=== PATIENT | female | born 1965 | race Asian ===

== ENCOUNTER 2021-10-16 06:59 | Emergency (ER) | payer MEDICAID ==
[~2021-10-16] VITALS: Ht 157.5 cm; Wt 54.4 kg
[2021-10-16 07:13] VITALS: BP_SYST 135
--- NOTE | 2021-10-16 07:17 | NUR ---
Patient to ER bed 7 to gown for evaluation. Side rails up. Report given to [facility].
--- NOTE | 2021-10-16 07:20 | NUR ---
MD Dr Swain was at bedside examining Pt.
--- NOTE | 2021-10-16 08:25 | NUR ---
Pt. Brought in by Family Awake and Alert AOx4, complaing of pain to ride side of head. Pt is ambulatory. Pt has approx. 6.5 cm laceration to ride side of head, bleeding control upon arrive. 30 min prior to arrival, Pt Stated she was exerciseing, and had her dogs tied to her waist, her dogs got exciting from seeing a coyote and gave richa, dragging the Pt. Pt stated she hit her head on a fence. Pt also had some scraps on her R lower extremity. Pt denied N/V
[2021-10-16] MEDS ORDERED: NACL 0.9% 1,000 ML IV ONE (09:45)
--- NOTE | 2021-10-16 10:27 | NUR ---
# 20 gauge angiocath placed to R Forearm. Use of asceptic technique. Opsite placed over site. Blood return noted. Flushed with 10 cc of normal saline. No evidence of infiltration noted. Patient tolerated well.
[2021-10-16] MEDS ORDERED: AMOX1TAB14 PO (10:54)
[2021-10-16] MEDS ORDERED: TRAM50TA PO (10:54)
[2021-10-16] MEDS ORDERED: AMPICILLIN SODIUM/SULBACTAM NA 3 GM in NS 100 ML IV ONE (11:00)
[2021-10-16] MEDS ORDERED: AMPICILLIN SODIUM/SULBACTAM NA 3 GM VIAL ONE ×2 (11:12)
[2021-10-16 12:35] VITALS: BP_SYST 135
--- NOTE | 2021-10-16 12:35 | NUR ---
Patient given written and verbal discharge instructions and verbalizes understanding. ER MD discussed with patient the results and treatment provided. Patient in stable condition. ID arm band removed. IV catheter removed intact and dressing applied, no active bleeding. Rx of TRAMADOL AND ABX given. Patient educated on pain management and to follow up with PMD. Opportunity for questions provided and answered. Medication side effect fact sheet provided.
== END 2021-10-16 12:35 | disposition home or self-care (01) ==
LOC: SED 06:59
DX: S06.0X9A Concussion with loss of consciousness of unspecified duration, initial encounter (principal); S16.1XXA Strain of muscle, fascia and tendon at neck level, initial encounter; S80.01XA Contusion of right knee, initial encounter; Z79.899 Other long term (current) drug therapy; W18.30XA Fall on same level, unspecified, initial encounter; Y93.89 Activity, other specified; Y92.89 Other specified places as the place of occurrence of the external cause; Y99.8 Other external cause status
CPT/HCPCS: 99284; 70450; 96365; 71045; 96361; 73560; 72125; 76376; J0295; J7030